=== PATIENT | female | born 1940 | race Caucasian/White ===

== ENCOUNTER → 2020-07-29 12:07 | Outpatient (BNVA) | payer MEDICARE, MEDICAID, SELFPAY | PROVIDERS: PCP Family Medicine; Visit Provider Internal Medicine | DX: R76.8 Other specified abnormal immunological findings in serum (principal); Z11.59 Encounter for screening for other viral diseases; Z11.1 Encounter for screening for respiratory tuberculosis; D86.9 Sarcoidosis, unspecified; M32.9 Systemic lupus erythematosus, unspecified; F17.210 Nicotine dependence, cigarettes, uncomplicated; Z51.81 Encounter for therapeutic drug level monitoring; Z79.891 Long term (current) use of opiate analgesic | CPT/HCPCS: 73120; 73620; 80053; 82306; 85651; 86140; 86431; 86480; 86704; 86803; 86812; 87340; 99203; 99204 ==

== ENCOUNTER 2020-07-29 14:06 | Outpatient (CLI) | payer MEDICARE, MEDICAID, SELFPAY ==
--- NOTE | 2020-07-29 14:12 | XR_ITS ---
WS: [id number] Right hand, 2 views, 07/29/2020 Clinical Data: hand pain Comparison: None. Findings: No new fractures or dislocations are seen. There is a healed fracture of the distal right radius. Diffuse demineralization is seen. There is endosteal thickening of the radial side of the mi dportion of the middle phalanx of the right fifth digit which is an incidental finding The soft tissu es are unremarkable. The joint spaces are normal No periarticular demineralization or calcifications are seen. XR/XR hand RT 2V 39801 Impression: 1. Diffuse demineralization. 2. Healed distal right radial fracture.
--- NOTE | 2020-07-29 14:12 | XR_ITS ---
WS: [id number] Right foot, 2 views, 07/29/2020 Clinical Data: foot pain Comparison: None. Findings: No fractures or dislocations are seen. No bone destruction or erosion is noted. The soft tissues are normal. There is a bunion of the head of the right first metatarsal. There is an Achilles spur. There is flex ion deformity of the right second through fourth phalanges. No periarticular demineralization or calc ifications are seen noted. XR/XR foot RT 2V 19022 Impression: 1. Bunion of the head of the right first metatarsal. 2. Diffuse demineralization.
--- NOTE | 2020-07-29 14:12 | XR_ITS ---
WS: [id number] Left foot, 2 views, 07/29/2020 Clinical Data: foot pain Comparison: None. Findings: No fractures or dislocations are seen. No bone destruction or erosion is noted. The joint spaces and soft tissues are normal. There is flexion deformity of the left second through fifth toes. No periarticular demineralization o r calcifications are seen. There is a small bunion at the head of the left first metatarsal. XR/XR foot LT 2V 35768 Impression: 1. Diffuse demineralization. 2. Negative for osteoarthritic change.
--- NOTE | 2020-07-29 14:12 | XR_ITS ---
WS: [id number] Left hand, 2 views, 07/29/2020 Clinical Data: hand pain Comparison: None. Findings: No fractures or dislocations are seen. The soft tissues are unremarkable. The joint spaces are normal There is diffuse demineralization. There is no periarticular demineralization or calcifications. XR/XR hand LT 2V 23221 Impression: Diffuse demineralization.
== END 2020-07-29 14:07 | disposition home or self-care (01) ==
LOC: LAB 14:08
PROVIDERS: PCP Family Medicine; Visit Provider Internal Medicine
DX: R76.8 Other specified abnormal immunological findings in serum (principal); D86.9 Sarcoidosis, unspecified; Z51.81 Encounter for therapeutic drug level monitoring; M32.9 Systemic lupus erythematosus, unspecified
CPT/HCPCS: 73120; 73620; 80053; 82306; 85651; 86140; 86431; 86480; 86704; 86803; 86812; 87340